=== PATIENT | female | born 1960 | race Caucasian/White ===

== ENCOUNTER → 2022-08-29 | Outpatient (CLI) | payer OTHER ==
--- NOTE | 2022-08-29 10:29 | NM ---
EXAMINATION TYPE: NM hepatobiliary w EF DATE OF EXAM: 08/29/2022 9:49 AM COMPARISON: None CLINICAL INDICATION:Female, 62 years old with history of R10.13 EPIGASTRIC PAIN; TECHNIQUE: The patient was given 4.8 mCi of Technetium 99m-Choletec as a radiotracer and multiple sci ntigraphic images were obtained of the abdomen. Gallbladder function was also assessed after the admi nistration of ensure drink and additional scintigraphic images were obtained of the abdomen. A region of interest was drawn over the gallbladder and a timing activity curve was generated. The gallbladde r ejection fraction was calculated. FINDINGS: Normal uptake of radiotracer was identified within the liver within 0 seconds with excretion into the hepatic and common biliary ducts within 6 minutes. There was normal progressive washout of the liver over the course of the study. Radiotracer uptake at 16 minutes for the gallbladder and 40 minutes fo r the small bowel. Maximum calculated gallbladder ejection fraction is: 95% at 30 minutes (Normal gallbladder ejection fraction is > 35%) IMPRESSION: 1. Normal hepatobiliary scan. 2. Normal ejection fraction.
== END | disposition home or self-care (01) ==
LOC: RADNMMAIN 07:07
PROVIDERS: ATTEND Surgery
DX: R10.13 Epigastric pain (principal)
CPT/HCPCS: 78226; A9537